=== PATIENT | female | born 1935 | race Caucasian/White ===

== ENCOUNTER → 2017-09-21 | Outpatient (CLI) | payer MEDICARE ==
[~2017-09-21] MED LIST: ACYC200 PO; AMIT25 PO; ASPI81EC; ATEN50; ATEN50 PO; ATOR20; CELE200; CELE200 PO; CHOL10002 PO; CLOB.05TC TP; CONEST.625; DIPH50; FLUO20; FLUO20 PO; ISOMON60ER; ISOMON60ER PO; LIDO2TG30 TOP; LIDO5TP TOP; OXYGEN; PREG75; PREG75 PO; PROM25 PO; SENN187 PO; SIMV40 PO; TELM40; TIOT18; TRAM50; TRAM50 PO
== END | disposition home or self-care (01) ==
LOC: LAB 07:04
DX: N32.89 Other specified disorders of bladder (principal); R31.9 Hematuria, unspecified
CPT/HCPCS: 88108

== ENCOUNTER 2019-03-26 09:07 | Day surgery (SDC) | payer MEDICARE ==
[2019-03-26 09:34] LABS: BASOPHILS ABSOLUTE AUTO 0.03 K/mm3 (0.00-0.23); BASOPHILS PERCENT AUTO 0 % (0-2); EOSINOPHILS PERCENT AUTO 2 % (0-6); Hematocrit 39.4 % (33.0-51.0); Hemoglobin 12.6 g/dL (11.5-16.0); IMMATURE GRAN ABSOLUTE AUTO 0.24 K/mm3 (0.00-0.10); IMMATURE GRAN PERCENT AUTO 2 % (0-1); LYMPHOCYTES ABSOLUTE AUTO 1.67 K/mm3 (0.84-5.20); LYMPHOCYTES PERCENT AUTO 14 % (21-46); MONOCYTES ABSOLUTE AUTO 1.17 K/mm3 (0.16-1.47); MONOCYTES PERCENT AUTO 10 % (4-13); Mean Corpuscular Volume 91 fL (80-100); Mean Platelet Volume 8.8 fL (9.1-12.4); NEUTROPHILS ABSOLUTE AUTO 8.85 K/mm3 (1.96-9.15); NEUTROPHILS PERCENT AUTO 72 % (41-73); Platelet Count 221 K/mm3 (150-400); RDW Coefficient Variation 13.6 % (11.7-14.2); RDW Standard Deviation 45.6 fL (35.1-46.3); Red Blood Cell Count 4.35 M/mm3 (3.80-5.20); White Blood Cell Count 12.26 K/mm3 (4.00-11.30)
[2019-03-26 09:47] LABS: International Normalized Ratio 0.95; Prothrombin Time Results 10.1 Sec (9.7-11.5)
--- NOTE | 2019-03-26 12:11 | NUR ---
PT ARRIVED TO STEP. SUKUMAR PO WELL. BX SITE SLIGHTLY PAINFUL WITH MOVEMENT, CDI. RESCAN TO BE DONE IN 2 HOURS.
--- NOTE | 2019-03-26 12:28 | NUR ---
PATIENT STATES SHE DID NOT TAKE HER LASIX THIS MORNING AND THAT SHE HAS HAD ELEVATION IN HER BLOOD PRESSURE IN THE PAST IN RESPONSE TO BEING PAINFUL.
--- NOTE | 2019-03-26 12:43 | NUR ---
REPORT TO ANTONY VANCE TO REASSUME CARE.
--- NOTE | 2019-03-26 13:45 | NUR ---
RESCAN DONE, PT IS CLEARED FOR DISCHARGE. VERBALIED UNDERSTANDING OF DC INSTRUCTIONS. Discharged via wheelchair to private car for ride home.
== END 2019-03-26 23:13 | disposition home or self-care (01) ==
LOC: CT 09:07
PROVIDERS: Internal Medicine Nephrology
DX: R80.9 Proteinuria, unspecified (principal); I12.9 Hypertensive chronic kidney disease with stage 1 through stage 4 chronic kidney disease, or unspecified chronic kidney disease; N18.4 Chronic kidney disease, stage 4 (severe); D63.1 Anemia in chronic kidney disease; D50.9 Iron deficiency anemia, unspecified; E78.5 Hyperlipidemia, unspecified; Z79.899 Other long term (current) drug therapy; Z88.1 Allergy status to other antibiotic agents; Z88.8 Allergy status to other drugs, medicaments and biological substances; Z88.5 Allergy status to narcotic agent
CPT/HCPCS: 36415; 50200; 77012; 85025; 85610; 85730; 88305; 88313; 88329; 88346; 88348; 88350